=== PATIENT | female | born 1975 | race Caucasian/White ===

== ENCOUNTER 2025-11-05 06:25 | Day surgery (SDC) | payer OTHER, SELFPAY | END 2025-11-05 10:29 | disposition home or self-care (01) | LOC: GI 06:25 | PROVIDERS: ATTENDING PHYSICIAN Internal Medicine Gastroenterology | DX: Z12.11 Encounter for screening for malignant neoplasm of colon (principal); R19.5 Other fecal abnormalities; K64.9 Unspecified hemorrhoids; D12.0 Benign neoplasm of cecum; K63.5 Polyp of colon | CPT/HCPCS: 45385; 45380; 45381; 88305 ==

== ENCOUNTER 2025-11-06 06:36 | Day surgery (SDC) | payer OTHER, SELFPAY | END 2025-11-06 15:03 | disposition home or self-care (01) | LOC: GI 06:36 | PROVIDERS: ATTENDING PHYSICIAN Internal Medicine Gastroenterology | DX: Z12.11 Encounter for screening for malignant neoplasm of colon (principal); R19.5 Other fecal abnormalities; K64.8 Other hemorrhoids; K63.3 Ulcer of intestine; K63.5 Polyp of colon; Z86.0100 Personal history of colon polyps, unspecified | CPT/HCPCS: 45385; 88305 ==